=== PATIENT | male | born 1945 | race Caucasian/White ===

== ENCOUNTER 2018-11-21 09:07 | Observation (INO) ==
--- NOTE | 2018-11-21 10:11 | ERNOTE ---
Medical Problem HPI - General Chief Complaint: General Assessment Time Seen by Provider: 11/21/18 09:35 Source: patient, family Exam Limitations: dementia - Immun/Allergies/Home Medications Allergies/Adverse Reactions: Allergies No Known Allergies Allergy (Verified 11/21/18 09:25) Home Medications: HOME MEDICATIONS acetaminophen 325 mg capsule 650 mg PO TID PRN cap 04/14/18 [Last Taken Unknown] amlodipine 10 mg tablet 10 mg PO DAILY 04/14/18 [Last Taken Unknown] baclofen 10 mg tablet See Rx Instructions PO TID 04/14/18 [Last Taken Unknown] bimatoprost 0.01 % eye drops 1 drp OP QPM 04/14/18 [Last Taken Unknown] bisacodyl 10 mg rectal suppository 10 mg GA DAILY PRN 04/14/18 [Last Taken Unknown] brinzolamide 1 %-brimonidine 0.2 % eye drops,suspension 1 drp OP DAILY ml 04/14/18 [Last Taken Unknown] digoxin 125 mcg tablet See Rx Instructions PO DAILY 04/14/18 [Last Taken Unknown] divalproex 500 mg tablet,delayed release 500 mg PO BID 04/14/18 [Last Taken Unknown] divalproex 500 mg tablet,delayed release 500 mg PO BID 04/14/18 [Last Taken Unknown] escitalopram 20 mg tablet 10 mg PO DAILY 04/14/18 [Last Taken Unknown] magnesium hydroxide 400 mg/5 mL oral suspension 30 ml PO DAILY PRN ml 04/14/18 [Last Taken Unknown] melatonin 3 mg tablet 3 mg PO HS 04/14/18 [Last Taken Unknown] metoprolol succinate ER 50 mg capsule sprinkle, ext. release 24 hr 50 mg PO LANCE LY 04/14/18 [Last Taken Unknown] prednisolone acetate 1 % eye drops,suspension 1 drp OP QID 04/14/18 [Last Taken Unknown] simvastatin 20 mg tablet 20 mg PO DAILY 04/14/18 [Last Taken Unknown] warfarin 1 mg tablet 1 mg PO Q OTHER DAY 04/14/18 [Last Taken Unknown] Warfarin Sodium [Coumadin] 3.5 mg PO DAILY 11/21/18 [Last Taken Unknown] - History of Present History Narrative: Patient was brought in under the direction of the because he has been home for several days in the jail and he is too weak to even attempt to care for himself. states he needs to go back to the jail for further rehab and attempt at getting his strength back. believes that most likely his dementia is getting worse and and now he is talking about the need for his life to end. states that he has been falling at home and that he is both incontinent of both stool and urine and it would appear that his seizure activity is increasing. Timing: constant Severity: severe Review of Systems - Review of Systems Constitutional: Present: See HPI EYE: Present: no symptoms reported ENT: Present: no symptoms reported Respiratory: Present: no symptoms reported Cardiology: Present: no symptoms reported Gastrointestinal/Abdominal: Present: no symptoms reported Genitourinary: Present: no symptoms reported Musculoskeletal: Present: no symptoms reported Skin: Present: no symptoms reported Neurological: Present: no symptoms reported Endocrine: Present: no symptoms reported Hematologic/Lymphatic: Present: no symptoms reported Psych: Present: no symptoms reported Medical History (Updated 11/21/18 @ 09:25 by Da Mcdaniel RN) Dementia Bursitis of right knee Onset Date: Unknown Right knee pain Onset Date: ~2017 Acute insomnia Onset Date: Unknown Atherosclerotic heart disease Onset Date: Unknown Atrial fibrillation Onset Date: Unknown CAD (coronary artery disease) Onset Date: Unknown Cerebral infarction Onset Date: Unknown right side affected Conjunctivitis Onset Date: Unknown Contracture, right hand Onset Date: Unknown Depressive episode Onset Date: Unknown Hyperlipidemia Onset Date: Unknown Hypertension Onset Date: Unknown Osteoarthritis Onset Date: Unknown Seizures Onset Date: Unknown TIA (transient ischemic attack) Onset Date: Unknown Cataract Onset Date: Unknown Surgical History: Surgical History (Updated 04/14/18 @ 07:16 by Chuck Muñoz MA) History of cataract surgery Onset Date: Unknown Family History: Family History (Updated 04/13/18 @ 14:51 by Chuck Muñoz MA) Father Heart disease Mother Unknown family medical history Social History: Preferred Language Liberian Smoking Status Never smoker (Last Updated 04/19/18 @ 11:25 by FAHAD Baltazar) No Social History Section defined Physical Exam - Physical Exam General Appearance: Present: wd/wn, alert, no apparent distress Head Exam: Present: normal inspection, no evidence of injury Eye Exam: Normal inspection: bilateral, PERRL: bilateral Ears, Nose, Throat: Present: normal ENT inspection, H, normal pharynx Neck: Present: normal inspection, nontender Respiratory: Present: no respiratory distress, normal breath sounds, no accessory muscle use, chest nontender, lungs clear Cardiovascular/Chest: Present: regular rate, rhythm, no murmur, normal peripheral pulses Gastrointestinal/Abdominal: Present: normal bowel sounds, nontender, nondistended, soft, no organomegaly Rectal Exam: Present: deferred Back Exam: Present: normal inspection, normal range of motion Extremity Exam: Present: normal inspection, non-tender, no edema, normal range of motion Neurological Exam: Present: disoriented to person, disoriented to time, disoriented to place, disoriented to situation Skin Exam: Present: normal color, warm/dry Lymphatic Exam: Present: no adenopathy Progress - Results and Orders Patient's Lab Results:: I have reviewed the patient's lab results. - Vital Signs Patient's Vital Signs:: I have reviewed the patient's vital signs. Vital Signs: Vital Signs 11/21/18 09:27 Temperature 36.7 C Pulse Rate 90 Respiratory Rate 16 Blood Pressure 128/78 O2 Sat by Pulse Oximetry 99 - X-Ray X-Ray #1 X-Ray: chest Interpretation: Reviewed by me - CT/Ultrasound CT/Ultrasound Narrative: CT the head reviewed by me - Progress/Reassessment Chief Complaint: General Assessment Plan - Plan Plan: Patient has been falling at home and has been incontinent of both urine and stool. I am suspecting is simply worsening dementia and he has been having seizure-like activity. Patient will be admitted and we will get a director social consult and most likely placement long-term in the jail. Departure Clinical Impression: Weakness, Falls frequently Dementia Qualifiers: Dementia type: Alzheimer's disease Alzheimer's disease onset: other onset Dementia behavioral disturbance: without behavioral disturbance Qualified Code(s): G30.8 - Other Alzheimer's disease; F02.80 - Dementia in other diseases classified elsewhere without behavioral disturbance Failure to thrive Qualifiers: Failure to thrive age range: in adult Qualified Code(s): R62.7 - Adult failure to thrive - Departure Disposition: Still a patient Condition: Fair
[2018-11-21] MEDS ORDERED: NORMAL SALINE 1,000 ML IV ONE (10:37)
[2018-11-21 10:55] LABS: Hematocrit 33.3 % (42.0-52.0); Hemoglobin 10.8 gm/dL (13.5-18.0); Mean Cell Volume 97.7 fl (78-100); Mean Corpuscular Hemoglobin 31.7 pg (27-31); Mean Corpuscular Hgb Conc 32.4 g/dl (32-36); Mean Platelet Volume 10.8 fl (8-11.3); Neutrophil # 4.7 K/mm3 (1.3-6.0); Neutrophil % 60.6 % (42-75.0); Platelet Count 130 K/mm3 (150-450); Red Blood Count 3.41 M/mm3 (4.7-6.0); Red Cell Distribution Width 13.8 % (11.5-14.0); White Blood Count 7.7 K/mm3 (4.0-10.5)
[2018-11-21 11:13] LABS: ALT 14 U/L (19-67); AST 17 U/L (0-48); Albumin * 3.2 gm/dl (3.4-5.0); Alkaline Phosphatase * 59 U/L (50-170); Anion Gap 10.8 mmol/L (6.8-13.8); Bilirubin, Total 0.3 mg/dL (0.0-1.1); Blood Urea Nitrogen 19 mg/dL (6-23); Ca. Corrected For Albumin 9.3 mg/dL (8.4-10.2); Carbon Dioxide 30.2 mmol/L (24-32.6); Chloride 107 mmol/L (97-106); Glucose * 93 mg/dL (70-110); Magnesium 1.9 mg/dL (1.2-2.8); Sodium 144 mmol/L (132-142); Total Protein 6.9 gm/dL (6.2-8.2); Troponin I Less than 0.017 ng/mL (0.00-0.10); Valproic Acid 93.5 mcg/mL (50.0-100.0)
[2018-11-21 12:52] LABS: Urine Appearance Clear (CLEAR); Urine Bacteria None Seen; Urine Bilirubin Negative (NEGATIVE); Urine Blood Negative /ul (NEGATIVE); Urine Color Yellow; Urine Ketone Negative (NEGATIVE); Urine Nitrite Negative (NEGATIVE); Urine Protein Negative (NEGATIVE); Urine RBC None Seen /hpf (0-5); Urine Specific Gravity 1.015 SP.GR. (1.005-1.030); Urine Urobilinogen Normal (NORMAL); Urine WBC None Seen /hpf (0-5); Urine pH 7.5 pH (5.0-7.0)
[2018-11-21] MEDS ORDERED: LORazepam 2 MG/ML DISP.SYRIN IV ONE (13:50)
[2018-11-21] MEDS ORDERED: LORazepam 2 MG/ML DISP.SYRIN ONE (13:51)
[2018-11-21] MEDS ORDERED: BACLOFEN 10 MG TABLET PO PRN (20:07)
[2018-11-21] MEDS ORDERED: SIMVASTATIN 20 MG TABLET PO SCH (20:15)
--- NOTE | 2018-11-21 20:30 | HP ---
Chief Complaint - Chief Complaint Date of Service: 11/21/18 Time of Service: 20:16 Chief Complaint: Patient is poor historian due to dementia History of Present Illness: 73-year-old male with past medical history of TIA, hyperlipidemia, advanced dementia, seizure disorder, atrial fibrillation, on chronic anticoagulation, CAD, right hand contractures was evaluated in our ER when he was brought in by EMS for seizure-like activity and a fall that occurred inform. Patient has advanced dementia therefore proper history was unobtainable and he is unaccompanied. He was brought in by EMS who reported that patient had several falls recently and seizure-like activities. No head injuries were reported. According to ER physician patient was recently seen in [place] by neurologist who was not able to determine if the seizure-like activities were really seizures. Patient was recently in a shelter but was discharged 2 weeks ago but appears to need better living arrangements and proper at home care. He has poor social support and his only family contact is his ex- who makes it clear that she cannot care for him and will need to be placed in an institution or permanently in a shelter. We will consult watch caser in the morning for proper discharge planning. Head CT ordered while in the ER ruled out any acute injuries or pathologies, the only finding was chronic left occipital and temporal lobe infarction. Labs were insignificant and chest x-ray was negative. Medical History (Updated 11/21/18 @ 14:06 by Min Garcia DO) Dementia Bursitis of right knee Onset Date: Unknown Right knee pain Onset Date: ~2018 Acute insomnia Onset Date: Unknown Atherosclerotic heart disease Onset Date: Unknown Atrial fibrillation Onset Date: Unknown CAD (coronary artery disease) Onset Date: Unknown Cerebral infarction Onset Date: Unknown right side affected Conjunctivitis Onset Date: Unknown Contracture, right hand Onset Date: Unknown Depressive episode Onset Date: Unknown Hyperlipidemia Onset Date: Unknown Hypertension Onset Date: Unknown Osteoarthritis Onset Date: Unknown Seizures Onset Date: Unknown TIA (transient ischemic attack) Onset Date: Unknown Cataract Onset Date: Unknown Surgical History: Surgical History (Updated 04/14/18 @ 07:16 by Chuck Muñoz MA) History of cataract surgery Onset Date: Unknown Family History: Family History (Updated 04/13/18 @ 14:51 by Chuck Muñoz MA) Father Heart disease Mother Unknown family medical history Social History: Patient Lives/Resources exwife Utilized Preferred Language Hebrew Do you have any caodaism or No cultural preference? Smoking Status Never smoker Have you smoked in the past 12 No months Alcohol Use none Drug Use none (Last Updated 04/19/18 @ 11:25 by FAHAD Baltazar) No Social History Section defined Peds Patient Hx - Developmental: No Pertinent Hx Peds Patient Hx - Medical: No Pertinent Hx Peds Patient Hx - Cardiac/Respiratory: No Pertinent Hx Peds Patient Hx - Surgical: No Surgical History Patient History - Cancer: No Hx of Cancer Review Of Systems (GEN) - Review of Systems Generalized/Overall Review: Present: No Symptoms Reported EENTM: Present: No Symptoms Reported Respiratory: Present: No Symptoms Reported Cardiac: Present: No Symptoms Reported Abdominal: Present: No Symptoms Reported Genitourinary: Present: No Symptoms Reported Musculoskeletal: Present: No Symptoms Reported Neurological: Present: Tremors, Other - Periodic Seizure-like activitiy Skin: Present: No Symptoms Reported Endocrine: Present: No Symptoms Reported Immunizations: IMMUNIZATION HX Immunizations Up to Date Yes Allergies/Adverse Reactions: Allergies Allergy/AdvReac Type Severity Reaction Status Date / Time No Known Allergies Allergy Verified 11/21/18 09:25 Home Medications: HOME MEDICATIONS acetaminophen 325 mg capsule 650 mg PO QID PRN cap 04/14/18 [Last Taken Unknow n] amlodipine 10 mg tablet 10 mg PO DAILY 04/14/18 [Last Taken Unknown] baclofen 10 mg tablet See Rx Instructions PO TID PRN 04/14/18 [Last Taken Unknown] divalproex 500 mg tablet,delayed release 500 mg PO BID 04/14/18 [Last Taken Unknown] escitalopram 20 mg tablet 10 mg PO DAILY 04/14/18 [Last Taken Unknown] prednisolone acetate 1 % eye drops,suspension 1 drp OP DAILY 04/14/18 [Last Taken Unknown] simvastatin 20 mg tablet 20 mg PO DAILY 04/14/18 [Last Taken Unknown] Baclofen 5 mg PO BID 11/21/18 [Last Taken Unknown] Brinzolamide/Brimonidine Tart [Simbrinza 1%-0.2% Eye Drops] 1 drp OPHTHALMIC (EYE) TID 11/21/18 [Last Taken Unknown] Divalproex Sodium [Depakote ER] 250 mg PO BID 11/21/18 [Last Taken Unknown] Donepezil HCl 5 mg PO DAILY 11/21/18 [Last Taken Unknown] Gabapentin 100 mg PO TID 11/21/18 [Last Taken Unknown] Losartan Potassium 25 mg PO DAILY 11/21/18 [Last Taken Unknown] [place]-3S/Dha/Epa/Fish Oil [Fish Oil 1,200 mg Softgel] 1 ea PO TID 11/21/18 [Last Taken Unknown] Timolol [Betimol] 1 drp OPHTHALMIC (EYE) BID 11/21/18 [Last Taken Unknown] Warfarin Sodium [Coumadin] 3.5 mg PO DAILY 11/21/18 [Last Taken Unknown] Exam - Exam Vital Signs: Vital Signs - Last Taken Temp 36.3 C 11/21/18 19:18 Pulse 75 11/21/18 19:18 Resp 18 11/21/18 19:18 BP 150/84 H 11/21/18 19:18 Pulse Ox 98 11/21/18 14:53 Constitutional: Present: Alert, Oriented x3, Cooperative, Well developed, Well nourished, No distress, Elderly ENT Exam: Present: normal ENT inspection, hearing grossly normal, pharynx normal, TMs normal Neck: Present: non-tender, full range of motion, supple, normal inspection, trachea midline Back Exam: Present: normal inspection, no CVA tenderness, no vertebral tenderness Breasts: Present: Exam deferred Respiratory: Present: chest non-tender, lungs clear, normal breath sounds, no respiratory distress, no accessory muscle use Cardiovascular/Chest: Present: normal peripheral pulses, regular rate, rhythm, no chest tenderness, no edema, no gallop, no JVD, no murmur, no rub Peripheral Pulses: carotid (R): 3+, carotid (L): 3+, femoral (R): 3+, femoral (L): 3+, dorsalis-pedis (R): 3+, dorsalis-pedis (L): 3+ Abdomen: Present: Normal bowel sounds, soft, nontender, nondistended, no rebound tenderness, no hepatospenomegaly, no masses /Rectal: Present: Exam deferred Extremity: Present: normal range of motion, non-tender, normal inspection, no pedal edema, no calf tenderness Skin Exam: Present: normal color, warm/dry, no cyanosis Lymphatic: Present: no adenopathy Neurologic: Present: 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, no motor/sensory deficits, alert, disoriented x 3 Appearance: Present: impaired insight, impaired recent memory, impaired remote memory Eye contact: Present: avoids eye contact Diagnostic Studies: Abnormal Lab Results 11/21/18 11/21/18 Range/Units 10:36 10:36 RBC 3.41 L (4.7-6.0) M/mm3 Hgb 10.8 L (13.5-18.0) gm/dL Hct 33.3 L (42.0-52.0) % MCH 31.7 H (27-31) pg Plt Count 130 L (150-450) K/mm3 Immature Gran % (Auto) 0.60 H (0.001-0.429) % Immature Gran # (Auto) 0.05 H (0.000-0.0310) K/mm3 Monocytes % 10.5 H (0.0-9) % Sodium 144 H (132-142) mmol/L Plasma Sodium 144 H (130-142) mmol/L Chloride 107 H (97-106) mmol/L ALT 14 L (19-67) U/L Albumin 3.2 L (3.4-5.0) gm/dl Laboratory Results WBC 7.7 K/mm3 (4.0-10.5) 11/21/18 10:36 RBC 3.41 M/mm3 (4.7-6.0) L 11/21/18 10:36 Hgb 10.8 gm/dL (13.5-18.0) L 11/21/18 10:36 Hct 33.3 % (42.0-52.0) L 11/21/18 10:36 MCV 97.7 fl (78-100) 11/21/18 10:36 MCH 31.7 pg (27-31) H 11/21/18 10:36 MCHC 32.4 g/dl (32-36) 11/21/18 10:36 RDW 13.8 % (11.5-14.0) 11/21/18 10:36 Plt Count 130 K/mm3 (150-450) L 11/21/18 10:36 MPV 10.8 fl (8-11.3) 11/21/18 10:36 Immature Gran % (Auto) 0.60 % (0.001-0.429) H 11/21/18 10:36 Immature Gran # (Auto) 0.05 K/mm3 (0.000-0.0310) H 11/21/18 10:36 60.6 % (42-75.0) 11/21/18 10:36 27.1 % (20-51) 11/21/18 10:36 10.5 % (0.0-9) H 11/21/18 10:36 0.9 % (0.0-3.0) 11/21/18 10:36 0.3 % (0.0-1.0) 11/21/18 10:36 Nucleated RBC % 0.0 k/mm3 (0-1) 11/21/18 10:36 4.7 K/mm3 (1.3-6.0) 11/21/18 10:36 2.10 k/mm3 (1.5-3.5) 11/21/18 10:36 0.8 k/mm3 (0.0-1.0) 11/21/18 10:36 0.1 k/mm3 (0.0-0.7) 11/21/18 10:36 Absolute Basophils 0.0 k/mm3 (0.0-0.1) 11/21/18 10:36 Sodium 144 mmol/L (132-142) H 11/21/18 10:36 144 mmol/L (130-142) H 11/21/18 10:36 Potassium 4.0 mmol/L (3.4-4.6) 11/21/18 10:36 Chloride 107 mmol/L (97-106) H 11/21/18 10:36 Carbon Dioxide 30.2 mmol/L (24-32.6) 11/21/18 10:36 10.8 mmol/L (6.8-13.8) 11/21/18 10:36 BUN 19 mg/dL (6-23) 11/21/18 10:36 1.00 mg/dL (0.4-1.4) 11/21/18 10:36 Est GFR (Non-Af Amer) 78 mL/min (60-130) 11/21/18 10:36 19.0 (9.0-21.6) 11/21/18 10:36 93 mg/dL (70-110) 11/21/18 10:36 Calcium 9.0 mg/dL (7.9-10.9) 11/21/18 10:36 Calcium Adj for Albumin 9.3 mg/dL (8.4-10.2) 11/21/18 10:36 Magnesium 1.9 mg/dL (1.2-2.8) 11/21/18 10:36 0.3 mg/dL (0.0-1.1) 11/21/18 10:36 AST 17 U/L (0-48) 11/21/18 10:36 ALT 14 U/L (19-67) L 11/21/18 10:36 59 U/L (50-170) 11/21/18 10:36 Less than 0.017 ng/mL (0.00-0.10) 11/21/18 10:36 6.9 gm/dL (6.2-8.2) 11/21/18 10:36 3.2 gm/dl (3.4-5.0) L 11/21/18 10:36 Yellow 11/21/18 12:45 Clear (CLEAR) 11/21/18 12:45 7.5 pH (5.0-7.0) 11/21/18 12:45 Ur Specific [place] 1.015 SP.GR. (1.005-1.030) 11/21/18 12:45 Negative mg/dL (NEGATIVE) 11/21/18 12:45 Negative mg/dL (NEGATIVE) 11/21/18 12:45 Negative mg/dL (NEGATIVE) 11/21/18 12:45 Negative /ul (NEGATIVE) 11/21/18 12:45 Negative (NEGATIVE) 11/21/18 12:45 Negative mg/dl (NEGATIVE) 11/21/18 12:45 Normal EU/dl (NORMAL) 11/21/18 12:45 Ur Leukocyte Esterase Negative /ul (NEGATIVE) 11/21/18 12:45 None seen /hpf (0-5) 11/21/18 12:45 None seen /hpf (0-5) 11/21/18 12:45 Ur Epithelial Cells 0-5 /hpf (0-5) 11/21/18 12:45 None seen (NONE) 11/21/18 12:45 No culture indicated 11/21/18 12:45 Valproic Acid 93.5 mcg/mL (50.0-100.0) 11/21/18 10:36 Assessment/Plan - Narrative Narrative: Patient was evaluated and medical chart was reviewed and decision to admit for seizure-like activity and seizure disorder was made. Patient has a poor social support and lives on his own, his ex- reports not being able to care for him and he has no one else. This is definitely a social case, will consult watch caser in the morning for proper discharge planning and placement in an appropriate facility. In the meantime patient will be treated with his regular medications to treat his seizures and for anticoagulation for his A. fib. - Assessment/Plan (1) Dementia Problem: Acute Qualifiers: Dementia type: Alzheimer's disease Alzheimer's disease onset: other onset Dementia behavioral disturbance: without behavioral disturbance Qualified Code(s): G30.8 - Other Alzheimer's disease; F02.80 - Dementia in other diseases classified elsewhere without behavioral disturbance (2) Failure to thrive Problem: Acute Qualifiers: Failure to thrive age range: in adult Qualified Code(s): R62.7 - Adult failure to thrive (3) Weakness Problem: Acute (4) Falls frequently Problem: Acute (5) Seizure disorder Problem: Chronic (6) Observed seizure-like activity Problem: Acute (7) Poor social situation Problem: Acute
[2018-11-21] MEDS ORDERED: LORazepam 1 MG TABLET PO PRN (20:32)
[2018-11-21] MEDS ORDERED: amLODIPine BESYLATE 5 MG TABLET ONE (22:15)
[2018-11-21] MEDS: GABAPENTIN 100 MG CAPSULE PO SCH (22:22)
[2018-11-21] MEDS: DIVALPROEX SODIUM 500 MG TABLET.DR PO SCH (22:22)
[2018-11-21] MEDS: DIVALPROEX SODIUM 250 MG TAB.SR.24H PO SCH (22:22)
[2018-11-21] MEDS: BACLOFEN 10 MG TABLET PO SCH (22:22)
[2018-11-21] MEDS: amLODIPine BESYLATE 10 MG TABLET PO SCH (22:23)
[2018-11-21] MEDS: FAMOTIDINE 20 MG TABLET PO SCH (22:23)
[2018-11-22 07:11] LABS: Prothrombin Time (Patient) 15.8 Seconds (9.1-10.7)
[2018-11-22 07:12] LABS: INR 1.63 INR (0.92-1.08)
[2018-11-22] MEDS: TIMOLOL MALEATE 50 DROP BTL EACHEYE SCH ×3 (07:41→21:29)
[2018-11-22] MEDS: LOSARTAN POTASSIUM 50 MG TABLET PO SCH (08:34)
[2018-11-22] MEDS: amLODIPine BESYLATE 10 MG TABLET PO SCH (08:34)
[2018-11-22] MEDS: ESCITALOPRAM OXALATE 10 MG TAB PO SCH (08:35)
[2018-11-22] MEDS: GABAPENTIN 100 MG CAPSULE PO SCH ×3 (08:35→17:17)
[2018-11-22] MEDS: OMEGA-3 FATTY ACIDS 1 CAP CAPSULE PO SCH ×3 (08:35→17:17)
[2018-11-22] MEDS: DONEPEZIL HCL 5 MG TABLET PO SCH (08:35)
[2018-11-22] MEDS: FAMOTIDINE 20 MG TABLET PO SCH ×2 (08:35→21:28)
[2018-11-22] MEDS: DIVALPROEX SODIUM 250 MG TAB.SR.24H PO SCH (08:35)
[2018-11-22] MEDS: BACLOFEN 10 MG TABLET PO SCH ×2 (08:35→21:27)
[2018-11-22] MEDS: DIVALPROEX SODIUM 500 MG TABLET.DR PO SCH ×2 (08:35→21:28)
[2018-11-22] MEDS: BRIMONIDINE TARTRATE 50 DROP BTL EACHEYE SCH ×3 (08:36→17:18)
[2018-11-22] MEDS: BRINZOLAMIDE 100 DROP BTL EACHEYE SCH ×3 (08:36→17:18)
[2018-11-22] MEDS: prednisoLONE ACETATE 50 DROP BTL OP SCH (08:37)
[2018-11-22] MEDS ORDERED: BRINZOLAMIDE ophthalmic (eye) SCH (09:00)
[2018-11-22] MEDS ORDERED: BRIMONIDINE TART ophthalmic (eye) SCH (09:00)
[2018-11-22] MEDS ORDERED: [UNRECOGNIZED DRUG - OTHER] ophthalmic (eye) SCH (09:00)
[2018-11-22] MEDS ORDERED: WARFARIN SODIUM 3 MG TABLET PO SCH (09:00)
--- NOTE | 2018-11-22 12:02 | PN ---
Subjective - Date and Time Seen Date: 11/22/18 Time: 11:54 Subjective Narrative: Patient is disoriented. Objective Objective Narrative: 73-year-old male admitted for recurrent falls, seizure-like activity, and poor social support was evaluated at bedside was found to be afebrile and in no acute distress. Patient continues to be unaccompanied and is disoriented due to his dementia so proper history of his condition is unobtainable at the moment. However, he maintains stable vitals and has not had a seizure since arriving to [facility]. Patient is noted to always have his eyes closed, although he is not blind. When asked why he keeps his eye closed he is unable to explain. Home placement is being arranged for discharge planning, but where he will go is still unknown at this moment. Patient was previously at [facility] but was discharged home with the understanding that his ex- with the help care for him. However his ex- has stated that she is unable to care for him and would like for him to be placed in a mcc. sap solution manager consultant is working on mcc placement at the moment we will follow-up with what they find. - Review of Systems Generalized/Overall Review: Reports: No Symptoms Reported EENTM: Reports: No Symptoms Reported Respiratory: Reports: No Symptoms Reported Cardiac: Reports: No Symptoms Reported Abdominal: Reports: No Symptoms Reported Genitourinary Symptoms: Reports: No Symptoms Reported Musculoskeletal Complaints: Reports: No Symptoms Reported Neurological: Reports: Tremors Skin: Reports: No Symptoms Reported Endocrine: Reports: No Symptoms Reported - Vitals Vitals: Last Vital Signs Temp 36.6 C 11/22/18 08:15 Pulse 78 11/22/18 08:28 Resp 18 11/22/18 08:15 BP 101/68 11/22/18 08:28 Pulse Ox 97 11/22/18 08:15 - Abnormal Lab Findings Abnormal Lab Findings: Abnormal Lab Results 11/22/18 Range/Units 06:45 PT 15.8 H (9.1-10.7) Seconds INR (Anticoag Therapy) 1.63 H (0.92-1.08) INR - Exam Constitutional: Present: Alert, Cooperative, Well developed, Well nourished, No distress, Elderly ENT Exam: Present: normal ENT inspection, hearing grossly normal, pharynx normal, moist mucous membranes Neck: Present: non-tender, full range of motion, supple, normal inspection, trachea midline Breasts: Present: Exam deferred Respiratory: Present: chest non-tender, lungs clear, normal breath sounds, no respiratory distress, no accessory muscle use Cardiovascular/Chest: Present: normal peripheral pulses, regular rate, rhythm, no chest tenderness, no edema, no gallop, no JVD, no murmur, no rub Abdomen: Present: Normal bowel sounds, soft, nontender, nondistended, no rebound tenderness, no hepatospenomegaly, no masses /Rectal: Present: Exam deferred Extremity: Present: normal range of motion, non-tender, normal inspection, no pedal edema, no calf tenderness, normal capillary refill Skin Exam: Present: normal color, warm/dry, no cyanosis Lymphatic: Present: no adenopathy Neurologic: Present: 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 He appears disoriented in time and place however that is to be expected his dementia. We are currently working on mcc placement or setting up at home care for him. In the meantime we will administer his routine medications and continue to monitor him. Patient has not had any seizure-like activity or occurrence of seizure. Will order physical therapy to get him out of bed and increase his ambulation. - Problems/Diagnosis (1) Dementia Problem: Acute Qualifiers: Dementia type: Alzheimer's disease Alzheimer's disease onset: other onset Dementia behavioral disturbance: without behavioral disturbance Qualified Code(s): G30.8 - Other Alzheimer's disease; F02.80 - Dementia in other diseases classified elsewhere without behavioral disturbance (2) Failure to thrive Problem: Acute Qualifiers: Failure to thrive age range: in adult Qualified Code(s): R62.7 - Adult failure to thrive (3) Weakness Problem: Acute (4) Falls frequently Problem: Acute (5) Seizure disorder Problem: Chronic (6) Observed seizure-like activity Problem: Acute (7) Poor social situation Problem: Acute
[2018-11-22] MEDS: ACETAMINOPHEN 325 MG TABLET PO PRN (15:09)
[2018-11-22] MEDS ORDERED: WARFARIN SODIUM 2.5 MG, WARFARIN SODIUM 1 MG PO SCH ×2 (17:00)
[2018-11-22] MEDS: DIVALPROEX SODIUM 250 MG TABLET.DR PO SCH (21:28)
[2018-11-22] MEDS: SIMVASTATIN 20 MG TABLET PO SCH (21:29)
[2018-11-23] MEDS: GABAPENTIN 100 MG CAPSULE PO SCH ×3 (08:12→16:29)
[2018-11-23] MEDS: DIVALPROEX SODIUM 250 MG TABLET.DR PO SCH ×2 (08:12→20:10)
[2018-11-23] MEDS: OMEGA-3 FATTY ACIDS 1 CAP CAPSULE PO SCH ×3 (08:12→16:29)
[2018-11-23] MEDS: FAMOTIDINE 20 MG TABLET PO SCH ×2 (08:13→20:11)
[2018-11-23] MEDS: DIVALPROEX SODIUM 500 MG TABLET.DR PO SCH ×2 (08:13→20:10)
[2018-11-23] MEDS: BACLOFEN 10 MG TABLET PO SCH ×2 (08:13→20:09)
[2018-11-23] MEDS: DONEPEZIL HCL 5 MG TABLET PO SCH (08:13)
[2018-11-23] MEDS: ESCITALOPRAM OXALATE 10 MG TAB PO SCH (08:13)
[2018-11-23] MEDS: BRINZOLAMIDE 100 DROP BTL EACHEYE SCH ×3 (08:14→16:28)
[2018-11-23] MEDS: TIMOLOL MALEATE 50 DROP BTL EACHEYE SCH ×2 (08:14→20:11)
[2018-11-23] MEDS: prednisoLONE ACETATE 50 DROP BTL OP SCH (08:14)
[2018-11-23] MEDS: BRIMONIDINE TARTRATE 50 DROP BTL EACHEYE SCH ×3 (08:14→16:28)
[2018-11-23] MEDS: LOSARTAN POTASSIUM 50 MG TABLET PO SCH (08:28)
[2018-11-23] MEDS: amLODIPine BESYLATE 10 MG TABLET PO SCH (08:29)
[2018-11-23 08:52] LABS: INR 1.24 INR (0.92-1.08); Prothrombin Time (Patient) 12.2 Seconds (9.1-10.7)
--- NOTE | 2018-11-23 10:16 | PN ---
Subjective - Date and Time Seen Date: 11/23/18 Time: 10:09 Subjective Narrative: Patient is disoriented. Objective Objective Narrative: 73-year-old male admitted for recurrent falls, seizure-like activity, and poor social support was evaluated at bedside was found to be afebrile and in no acute distress. Patient continues to be unaccompanied and is disoriented due to his dementia so proper history of his condition is unobtainable at the moment. However, he maintains stable vitals and has not had a seizure since arriving to [facility]. Patient is noted to always have his eyes closed, although he is not blind. Physical therapy was consulted to evaluate patient and to assist with transfer and mobility. lofter are working on chcf placement, which is rather difficult at the moment however we will continue to work on it. - Review of Systems Generalized/Overall Review: Reports: No Symptoms Reported EENTM: Reports: No Symptoms Reported Respiratory: Reports: No Symptoms Reported Cardiac: Reports: No Symptoms Reported Abdominal: Reports: No Symptoms Reported Genitourinary Symptoms: Reports: No Symptoms Reported Musculoskeletal Complaints: Reports: No Symptoms Reported Neurological: Reports: Tremors, Pre-existing Deficit Endocrine: Reports: No Symptoms Reported - Vitals Vitals: Last Vital Signs Temp 37 C 11/23/18 07:00 Pulse 100 11/23/18 08:18 Resp 18 11/23/18 07:00 BP 97/62 11/23/18 08:18 Pulse Ox 97 11/23/18 07:00 - Abnormal Lab Findings Abnormal Lab Findings: Abnormal Lab Results 11/23/18 Range/Units 07:37 PT 12.2 H (9.1-10.7) Seconds INR (Anticoag Therapy) 1.24 H (0.92-1.08) INR - Exam Constitutional: Present: Alert, Cooperative, Well developed, Well nourished, No distress, Elderly ENT Exam: Present: normal ENT inspection, hearing grossly normal, pharynx normal Neck: Present: non-tender, full range of motion, supple, normal inspection, trachea midline Breasts: Present: Exam deferred Respiratory: Present: chest non-tender, lungs clear, normal breath sounds, no respiratory distress, no accessory muscle use Cardiovascular/Chest: Present: normal peripheral pulses, no chest tenderness, no edema, no gallop, no JVD, no murmur, irregularly irregular Abdomen: Present: Normal bowel sounds, soft, nontender, nondistended, no rebound tenderness, no hepatospenomegaly, no masses /Rectal: Present: Exam deferred Extremity: Present: normal range of motion, non-tender, normal inspection, no pedal edema, no calf tenderness, normal capillary refill Skin Exam: Present: normal color, warm/dry, no cyanosis Lymphatic: Present: no adenopathy Neurologic: Present: alert, abnormal medical insurance verifier II-XII, abnormal gait, disoriented x 3 Appearance: Present: appropriate appearance, neat, impaired insight, impaired recent memory, impaired remote memory Eye contact: Present: cooperative, avoids eye contact Thoughts: Present: no apparent hallucination Assessment/Plan Plan Narrative: We will continue to monitor patient closely for any recurrence of seizures, in the meantime patient's antihypertensives were held due to hypotension. We will continue to give him her routine meds especially seizure medications. We will follow-up with residential case manager for chcf placement and consult physical therapy to avoid weakening and deconditioning. - Problems/Diagnosis (1) Dementia Problem: Chronic Qualifiers: Dementia type: Alzheimer's disease Alzheimer's disease onset: other onset Dementia behavioral disturbance: without behavioral disturbance Qualified Code(s): G30.8 - Other Alzheimer's disease; F02.80 - Dementia in other diseases classified elsewhere without behavioral disturbance (2) Failure to thrive Problem: Chronic Qualifiers: Failure to thrive age range: in adult Qualified Code(s): R62.7 - Adult failure to thrive (3) Weakness Problem: Acute (4) Falls frequently Problem: Acute (5) Seizure disorder Problem: Chronic (6) Observed seizure-like activity Problem: Acute (7) Poor social situation Problem: Chronic
--- NOTE | 2018-11-23 16:57 | DS ---
(1) Dementia Problem: Chronic Qualifiers: Dementia type: Alzheimer's disease Alzheimer's disease onset: other onset Dementia behavioral disturbance: without behavioral disturbance Qualified Code(s): G30.8 - Other Alzheimer's disease; F02.80 - Dementia in other diseases classified elsewhere without behavioral disturbance (2) Failure to thrive Problem: Chronic Qualifiers: Failure to thrive age range: in adult Qualified Code(s): R62.7 - Adult failure to thrive (3) Weakness Problem: Resolved (4) Falls frequently Problem: Acute (5) Seizure disorder Problem: Chronic (6) Observed seizure-like activity Problem: Acute (7) Poor social situation Problem: Chronic Description of Stay: 73-year-old male admitted for seizure-like activities, failure to thrive, dehydration, and multiple recent falls that has occurred in his home was evaluated at bedside and was found to be afebrile and in no acute distress. Patient has maintained stable vitals and has not had any seizures while hospitalized at our institution. sales and marketing specialist were able to achieve placement in a senior living specifically at [facility]. He will be discharged in a wheelchair van to the senior living. Patient will be discharged with instructions to resume all of his chronic at home medications and to follow-up with his PCP for evaluation. Patient also needs daily INR checks to ensure target INR range of 2-3 for his atrial fibrillation. He was ordered to undergo INR check tomorrow and to take 5 mg of warfarin daily until target of 2-3 is reached. Procedures Performed: none Results and Findings: Lab Pending Results 11/21/18 10:36: WBC 7.7, RBC 3.41 L, Hgb 10.8 L, Hct 33.3 L, MCV 97.7, MCH 31.7 H, MCHC 32.4, RDW 13.8, Plt Count 130 L, MPV 10.8, Immature Gran % (Auto) 0.60 H, Immature Gran # (Auto) 0.05 H, Neutrophils % 60.6, Lymphocytes % 27.1, Monocytes % 10.5 H, Eosinophils % 0.9, Basophils % 0.3, Nucleated RBC % 0.0, Neutrophils # 4.7, Lymphocytes # 2.10, Monocytes # 0.8, Eosinophils # 0.1, Abs olute Basophils 0.0 11/21/18 10:36: Sodium 144 H, Plasma Sodium 144 H, Potassium 4.0, Chloride 107 H, Carbon Dioxide 30.2, Anion Gap 10.8, BUN 19, Creatinine 1.00, Est GFR (Non-Af Amer) 78, BUN/Creatinine Ratio 19.0, Random Glucose 93, Calcium 9.0, Calcium Adj for Albumin 9.3, Magnesium 1.9, Total Bilirubin 0.3, AST 17, ALT 14 L, Alkaline Phosphatase 59, Troponin I Less than 0.017, Total Protein 6.9, Albumin 3.2 L, Valproic Acid 93.5 11/21/18 12:45: Urine Color Yellow, Urine Appearance Clear, Urine pH 7.5, Ur Specific [place] 1.015, Urine Protein Negative, Urine Glucose (UA) Negative, Urine Ketones Negative, Urine Blood Negative, Urine Nitrate Negative, Urine Bilirubin Negative, Urine Urobilinogen Normal, Ur Leukocyte Esterase Negative, Urine RBC None seen, Urine WBC None seen, Ur Epithelial Cells 0-5, Urine Bacteria None seen, Urine Culture Comments No culture indicated 11/22/18 06:45: PT 15.8 H, INR (Anticoag Therapy) 1.63 H 11/23/18 07:37: PT 12.2 H, INR (Anticoag Therapy) 1.24 H Discharge Location: [facility] Disposition: SNF Condition: Fair Face to Face Encounter completed per [facility] Guidelines: No Level of Care: SNF Discharge Activity: Activity as tolerated Discharge Diet: General/regular food Snf Therapy: Physicial Therapy, Occupation Therapy Prescriptions (Any new or edited meds): Warfarin Sodium [Coumadin] 5 mg PO DAILY@1700 30 Days #10 tab Complete Home Medications List: Complete Home Medication List: acetaminophen 325 mg capsule 650 mg PO QID PRN cap 04/14/18 amlodipine 10 mg tablet 10 mg PO DAILY 04/14/18 baclofen 10 mg tablet See Rx Instructions PO TID PRN 04/14/18 divalproex 500 mg tablet,delayed release 500 mg PO BID 04/14/18 escitalopram 20 mg tablet 10 mg PO DAILY 04/14/18 prednisolone acetate 1 % eye drops,suspension 1 drp OP DAILY 04/14/18 simvastatin 20 mg tablet 20 mg PO DAILY 04/14/18 Baclofen 5 mg PO BID 11/21/18 Brinzolamide/Brimonidine Tart [Simbrinza 1%-0.2% Eye Drops] 1 drp OPHTHALMIC (EYE) TID 11/21/18 Divalproex Sodium [Depakote ER] 250 mg PO BID 11/21/18 Donepezil HCl 5 mg PO DAILY 11/21/18 Gabapentin 100 mg PO TID 11/21/18 Losartan Potassium 25 mg PO DAILY 11/21/18 Mertens-3S/Dha/Epa/Fish Oil [Fish Oil 1,200 mg Softgel] 1 ea PO TID 11/21/18 Timolol [Betimol] 1 drp OPHTHALMIC (EYE) BID 11/21/18 Warfarin Sodium [Coumadin] 5 mg PO DAILY@1700 30 Days #10 tab 11/23/18
[2018-11-23] MEDS ORDERED: WARFARIN SODIUM 5 MG TABLET PO SCH (17:00)
[2018-11-23] MEDS: ACETAMINOPHEN 325 MG TABLET PO PRN (17:12)
[2018-11-23] MEDS: SIMVASTATIN 20 MG TABLET PO SCH (20:11)
[2018-11-24] MEDS: ACETAMINOPHEN 325 MG TABLET PO PRN (04:56)
[2018-11-24 05:43] LABS: Prothrombin Time (Patient) 11.8 Seconds (9.1-10.7)
[2018-11-24 05:46] LABS: INR 1.2 INR (0.92-1.08)
[2018-11-24 06:08] VITALS: BP 126/77
== END 2018-11-24 05:50 ==
LOC: ER 09:07 → MS 09:07
PROVIDERS: ADMIT Family Medicine; ATTEND Family Medicine
DX: Z79.01 Long term (current) use of anticoagulants; R29.6 Repeated falls; R62.7 Adult failure to thrive; I48.91 Unspecified atrial fibrillation; G40.909 Epilepsy, unspecified, not intractable, without status epilepticus; R53.1 Weakness; G30.8 Other Alzheimer's disease
CPT/HCPCS: 36415; 70450; 71010; 71045; 80053; 80164; 81001; 83735; 84484; 85025; 85610; 93005; 96361; 96374; 97110; 97116; 97162; 99285; G0378